=== PATIENT | female | born 1975 | race Asian ===

== ENCOUNTER 2017-12-06 00:14 | Inpatient (IN) | payer SELFPAY ==
[~2017-12-06] VITALS: Ht 160 cm; Wt 69.9 kg
[2017-12-06] MEDS ORDERED: LACTATED RINGERS 500 ML IV ONE (00:35)
[2017-12-06] MEDS ORDERED: PROMETHAZINE 25 MG/ML VIAL IVP PRN (00:35)
[2017-12-06] MEDS ORDERED: OXYTOCIN 10 UNITS/ML VIAL IM SCH (00:35)
[2017-12-06] MEDS ORDERED: NALBUPHINE HYDROCHLORIDE 10 MG/ML VIAL IVP PRN (00:35)
[2017-12-06] MEDS ORDERED: MISOPROSTOL 25 MCG TAB VG PRN (00:40)
[2017-12-06 00:58] LABS: APPEARANCE,URINE CLEAR (CLEAR); BILIRUBIN,URINE NEGATIVE (NEGATIVE); BLOOD, URINE NEGATIVE (NEGATIVE); COLOR,URINE YELLOW (YELLOW); LEUKOCYTE ESTERASE ,URINE NEGATIVE (NEGATIVE); NITRITE, URINE NEGATIVE (NEGATIVE); UGLUCOSE NEGATIVE (NEGATIVE)
[2017-12-06 01:06] LABS: ANION GAP 17.1 (8-16); CARBON DIOXIDE 21.1 mmol/L (21-32); CREATININE 1.1 mg/dL (0.6-1.3); HEMATOCRIT 42.3 % (36-48); HEMOGLOBIN 14.5 g/dL (12.0-16.0); MEAN CORPUSCULAR HEMOGLOBIN 33 pg (27-31); MEAN CORPUSCULAR HGB CONC 34 g/dL (33-37); MEAN CORPUSCULAR VOLUME 96 fL (80-94); POTASSIUM 4.2 mmol/L (3.5-5.1); RED BLOOD CELL COUNT(AUTO) 4.41 MIL/uL (4.20-5.40); RED CELL DISTRIBUTION WIDTH 13.2 % (11.6-13.7); WHITE BLOOD COUNT (AUTO) 7.2 K/uL (4.8-10.8)
[2017-12-06 01:07] LABS: BASOPHILS % (AUTO) 0.5 % (0.0-2.0); MONOCYTES % (AUTO) 8.3 % (1.7-9.3); NEUTROPHILS % (AUTO) 68.2 % (42.2-75.2); PLATELET COUNT (AUTO) 285 K/uL (140-450)
[2017-12-06 01:08] LABS: EOSINOPHILS # (AUTO) 0.1 K/uL (0-0.4); LYMPHOCYTES # (AUTO) 1.6 K/uL (2.5-16.5); MONOCYTES # (AUTO) 0.6 K/uL (0.8-1.0); NEUTROPHILS # (AUTO) 4.9 K/uL (1.8-7.7)
[2017-12-06 01:13] LABS: ALBUMIN 2.7 g/dL (3.4-5.0); TOTAL BILIRUBIN 0.4 mg/dL (0.0-1.0)
[2017-12-06] MEDS ORDERED: MISOPROSTOL 25 MCG TAB ONE (01:28)
[2017-12-06 01:38] VITALS: BP 147/83
[2017-12-06] MEDS: LACTATED RINGERS 1,000 ML IV SCH ×2 (01:39→09:01)
[2017-12-06] MEDS ORDERED: TRA200 GT (01:57)
[2017-12-06] MEDS ORDERED: PREN-380 PO (01:57)
[2017-12-06 02:29] LABS: RBC,URINE 0-5 (RARE) /HPF (0-5); WBC,URINE 0-5 (RARE) /HPF (0-5)
[2017-12-06] MEDS ORDERED: BUPIVACAINE 0.125%/NS PREMIX 250 ML ONE (05:51)
[2017-12-06] MEDS ORDERED: OXYTOCIN 20 UNITS in LACTATED RINGERS 1,000 ML IV SCH (06:10)
[2017-12-06] MEDS ORDERED: OXYTOCIN 20 UNITS/LR PREMIX 1,000 ML IV ONE (06:58)
[2017-12-06] MEDS ORDERED: LABETALOL 200 MG TAB ONE (08:41)
[2017-12-06] MEDS: LABETALOL 200 MG TAB PO SCH ×2 (08:52→21:12)
--- NOTE | 2017-12-06 09:01 | NUR ---
PATIENT HAS BEEN SCREENED AND CATEGORIZED LOW NUTRITION RISK. PATIENT WILL BE SEEN WITHIN 7 DAYS OF ADMISSION. 12/12/[address]
[2017-12-06] MEDS ORDERED: OXYTOCIN 10 UNITS/ML VIAL ONE (11:04)
[2017-12-06] MEDS ORDERED: HYDROcodone/APAP 5/325 MG 1 TAB TAB PO PRN ×2 (14:30→14:40)
[2017-12-06] MEDS ORDERED: OXYTOCIN 10 UNITS/ML VIAL IM PRN (14:30)
[2017-12-06] MEDS ORDERED: oxyCODONE/APAP 5/325 MG 1 TAB TAB PO PRN ×2 (14:30→14:40)
[2017-12-06] MEDS ORDERED: TEMAZEPAM 15 MG CAP PO PRN ×2 (14:40)
[2017-12-06] MEDS ORDERED: METHYLERGONOVINE 0.2 MG TAB PO PRN (14:40)
[2017-12-06] MEDS ORDERED: BENZOCAINE/MENTHOL 20%-0.5% 60 GM CAN TP PRN (14:40)
[2017-12-06] MEDS ORDERED: BISACODYL 10 MG SUPP RC PRN (14:40)
[2017-12-06] MEDS ORDERED: SODIUM PHOSPHATE 118 ML ENEM RC PRN (14:40)
[2017-12-06] MEDS ORDERED: METHYLERGONOVINE 0.2 MG/ML AMP IM PRN (14:40)
[2017-12-06] MEDS ORDERED: MEASLES, MUMPS, AND RUBELLA 1 VIAL SQVAC PRN (14:40)
[2017-12-06] MEDS ORDERED: BISACODYL 5 MG TABEC PO SCH (21:00)
[2017-12-06] MEDS ORDERED: SENNA 8.6 MG TAB PO SCH (21:00)
[2017-12-06] MEDS ORDERED: DOCUSATE SOD/SENNA 50/8.6 MG 1 TAB PO SCH (21:00)
[2017-12-06] MEDS: CALCIUM POLYCARBOPHIL 625 MG TAB PO SCH (21:41)
[2017-12-07 06:45] LABS: HEMATOCRIT 35.3 % (36-48); HEMOGLOBIN 12.2 g/dL (12.0-16.0)
[2017-12-07] MEDS: LABETALOL 200 MG TAB PO SCH ×2 (09:22→21:00)
[2017-12-07] MEDS: CALCIUM POLYCARBOPHIL 625 MG TAB PO SCH (09:23)
[2017-12-07] MEDS ORDERED: DOCUSATE SOD/SENNA 50/8.6 MG 1 TAB PO SCH (21:00)
[2017-12-08] MEDS: LABETALOL 200 MG TAB PO SCH (09:13)
== END 2017-12-08 14:45 | disposition home or self-care (01) | DRG 775 ==
LOC: MLD 00:14 → MFCC 14:00
PROVIDERS: ADMIT Obstetrics & Gynecology; ATTEND Obstetrics & Gynecology
PROC: 10E0XZZ Delivery of Products of Conception, External Approach (ICD-10-PCS; principal; 2017-12-06)
PROC: 10907ZC Drainage of Amniotic Fluid, Therapeutic from Products of Conception, Via Natural or Artificial Opening (ICD-10-PCS; 2017-12-06)
PROC: 3E033VJ Introduction of Other Hormone into Peripheral Vein, Percutaneous Approach (ICD-10-PCS; 2017-12-06)
PROC: 0W8NXZZ Division of Female Perineum, External Approach (ICD-10-PCS; 2017-12-06)
PROC: 00HU33Z Insertion of Infusion Device into Spinal Canal, Percutaneous Approach (ICD-10-PCS; 2017-12-06)
PROC: 3E0R3BZ Introduction of Anesthetic Agent into Spinal Canal, Percutaneous Approach (ICD-10-PCS; 2017-12-06)
DX: O69.1XX0 Labor and delivery complicated by cord around neck, with compression, not applicable or unspecified (principal); Z28.21 Immunization not carried out because of patient refusal; Z37.0 Single live birth; Z3A.39 39 weeks gestation of pregnancy
CPT/HCPCS: 36415; 51702; 59200; 59409; 80053; 81001; 83735; 85018; 85025; 86592; 86886; 86900; 86901; 87086; J2590; J3490; J7120